=== PATIENT | male | born 1995 | race Two or more races ===

== ENCOUNTER 2022-08-29 20:40 | Emergency (ER) | payer OTHER ==
[2022-08-29 21:02] VITALS: RESP 18; TEMP 98; BMI 32.8
[2022-08-29] MEDS ORDERED: LACTATED RINGERS SOLUTION 1000 ML INFUS.BAG IV ONE (21:48)
[2022-08-29 22:48] LABS: BASO % 0.3 % (0-2.0); EOS % 0.2 % (0-4.5); HEMATOCRIT 41.2 % (35.4-49); HEMOGLOBIN 14.2 GM/dL (11.7-16.9); LYMPH % 7.4 % (8-40); MCH 28.7 pg (25.7-33.7); MCHC 34.5 g/dl (32.0-35.9); MEAN CELL VOLUME 83.2 fl (80-96); MEAN PLT VOLUME 7.6 fl (7.5-11.1); NEUT % 84.1 % (42.8-82.8); PLATELET COUNT 270 10^3/uL (134-434); RBC 4.95 M/mm3 (4.00-5.60); RDW 13.6 % (11.9-15.9); WHITE BLOOD COUNT 13.1 K/mm3 (4.0-10.0)
[2022-08-29 22:57] LABS: BLOOD UREA NITROGEN 12.7 mg/dL (7-18); CALCIUM 8.9 mg/dL (8.5-10.1)
[2022-08-29 23:01] LABS: CREATININE 1.2 mg/dL (0.55-1.3)
[2022-08-29 23:02] LABS: TOT PROT 7.5 g/dl (6.4-8.2)
[2022-08-29 23:03] LABS: BILIRUBIN,TOTAL 0.3 mg/dL (0.2-1)
[2022-08-30 00:54] VITALS: BP 160/82; PULSE 101
== END 2022-08-30 00:54 | disposition home or self-care (01) ==
LOC: JER 20:40
DX: E86.0 Dehydration (principal); R42 Dizziness and giddiness
CPT/HCPCS: 36415; 80053; 85025; 93005; 93010; 99283-25

== ENCOUNTER 2024-12-23 17:42 | Emergency (ER) | payer OTHER ==
[2024-12-23 17:51] VITALS: BP 139/73; PULSE 95; RESP 18; TEMP 98.3; BMI 27.0
[2024-12-23] MEDS: IBUPROFEN 600 MG TABLET (FP) PO ONE (18:34)
[2024-12-23] MEDS ORDERED: IBUPROFEN 600 MG TABLET (FP) PO ONE (18:34)
== END 2024-12-23 19:59 | disposition home or self-care (01) ==
LOC: JERFT 17:42
DX: M25.561 Pain in right knee (principal); R00.0 Tachycardia, unspecified
CPT/HCPCS: 73562-TC-RT-FY; 99283-25